=== PATIENT | female | born 1975 | race African-American/Black ===

== ENCOUNTER → 2016-04-20 | Outpatient (CLI) | payer OTHER ==
[~2016-04-20] MED LIST: FERR325T PO; FERRTAB2 PO; MACR100C2 PO; PREN1CAP33 PO; TERC20CR VAGINAL
== END ==
LOC: HPND 10:55
PROVIDERS: ATTEND Obstetrics & Gynecology Obstetrics
DX: O09.521 Supervision of elderly multigravida, first trimester (principal); O99.211 Obesity complicating pregnancy, first trimester; O99.011 Anemia complicating pregnancy, first trimester
CPT/HCPCS: 76801

== ENCOUNTER → 2016-06-20 | Outpatient (CLI) | payer MEDICAID ==
[~2016-06-20] MED LIST changes: -TERC20CR VAGINAL
== END ==
LOC: HPND 09:01
PROVIDERS: ATTEND Obstetrics & Gynecology
DX: O09.522 Supervision of elderly multigravida, second trimester (principal); O99.212 Obesity complicating pregnancy, second trimester; O99.012 Anemia complicating pregnancy, second trimester; Z3A.19 19 weeks gestation of pregnancy
CPT/HCPCS: 76811

== ENCOUNTER → 2016-07-18 | Outpatient (CLI) | payer MEDICAID | LOC: HPND 09:14 | PROVIDERS: ATTEND Obstetrics & Gynecology | DX: O99.212 Obesity complicating pregnancy, second trimester (principal); O09.522 Supervision of elderly multigravida, second trimester; O99.842 Bariatric surgery status complicating pregnancy, second trimester; E66.01 Morbid (severe) obesity due to excess calories; Z68.42 Body mass index [BMI] 45.0-49.9, adult; Z3A.23 23 weeks gestation of pregnancy | CPT/HCPCS: 76816; 76825; 76827; 93325 ==

== ENCOUNTER → 2016-08-14 | Outpatient (CLI) | payer MEDICAID ==
[~2016-08-14] MED LIST changes: -FERR325T PO; -MACR100C2 PO
== END ==
LOC: HPND 09:08
PROVIDERS: ATTEND Obstetrics & Gynecology
DX: O09.522 Supervision of elderly multigravida, second trimester (principal); O99.842 Bariatric surgery status complicating pregnancy, second trimester; O99.212 Obesity complicating pregnancy, second trimester; E66.01 Morbid (severe) obesity due to excess calories; Z68.42 Body mass index [BMI] 45.0-49.9, adult; Z3A.26 26 weeks gestation of pregnancy
CPT/HCPCS: 76816

== ENCOUNTER → 2016-09-04 | Outpatient (CLI) | payer MEDICAID | LOC: CDED 08:31 | DX: O24.419 Gestational diabetes mellitus in pregnancy, unspecified control (principal) | CPT/HCPCS: 97802 ==

== ENCOUNTER → 2016-09-18 | Outpatient (CLI) | payer MEDICAID | LOC: HPND 08:53 | PROVIDERS: ATTEND Obstetrics & Gynecology | DX: O09.523 Supervision of elderly multigravida, third trimester (principal); O99.843 Bariatric surgery status complicating pregnancy, third trimester; O99.213 Obesity complicating pregnancy, third trimester; E66.01 Morbid (severe) obesity due to excess calories; Z68.42 Body mass index [BMI] 45.0-49.9, adult; Z3A.31 31 weeks gestation of pregnancy | CPT/HCPCS: 76816 ==

== ENCOUNTER 2016-10-25 11:37 | Inpatient (IN) | payer MEDICAID ==
[2016-10-25] VITALS (38 sets, daily range): BP systolic 111–153; BP diastolic 64–92; PULSE 37–79; RESP 17–19; TEMP 97.7–98.7
[~2016-10-25] VITALS: Ht 170.2 cm; Wt 143.8 kg
--- NOTE | 2016-10-25 12:26 | PD ---
HPI Date Seen: Oct 25, 2016 Time Seen: 12:10 (Tan Metz MD R1) Travel History International Travel<30 Days: No Contact w/Intl Traveler<30Days: No Known Affected Area: No (Tan Metz MD R1) History of Present Illness HPI 41-year-old at 37/1 weeks gestation presenting with elevated pressure reading noted on clinic visit today. She denies chest pain, epigastric pain, headaches, vision changes. Of note, she had high blood pressure readings during her previous , but never carried a formal diagnosis of preeclampsia. ( Tan Metz MD R1) History Past Medical History Narrative Medical Obesity Gestational hypertension and prior Anemia (Tan Metz MD R1) Obstetric History Obstetric History , prior pregnancies all delivered vaginally without complication (2010, 2011) (Tan Metz MD R1) Past Surgical History Narrative Surgical Cholecystectomy Gastric bypass in 2008 (Tan Metz MD R1) Family History Family History: Negative (Tan Metz MD) Social History Alcohol Use: No Tobacco Use: No Substance Abuse: No (Tan Metz MD R1) Allergies-Medications (Allergen,Severity, Reaction): Coded Allergies: No Known Allergies (Verified , 10/25/16) Home Meds Active Scripts Multi-Vit/Iron-Folic [id number] C (Ferralet)90-1-0.012-120 mg Tab1 Tab PO DAILY #30 BOTTLE Ref 5 Prov:Katalina Lazo CNM [employer] 08/28/16 Vit W/ Fe Polysacch C (Vitafol Fe+ 90-1-200 & 50 mg)1 Cap Cap1 Tab PO DAILY #60 BOTTLE Ref 11 Prov:Lizeth Cummings [employer] 04/19/16 Review of Systems Except as stated in HPI: all other systems reviewed are Neg (Tan Metz MD R1) Physical Exam Vital Signs Date Time Temp Pulse Resp B/P Pulse Ox O2 Delivery O2 Flow Rate FiO2 10/25/16 12:10 74 131/84 10/25/16 12:05 19 10/25/16 12:03 78 153/78 Narrative GENERAL: Well-nourished, well-developed patient. SKIN: Warm and dry. HEAD: Normocephalic and atraumatic. EYES: No scleral icterus. No injection or drainage. ENT: No nasal drainage noted. Mucous membranes pink. Airway patent. CARDIOVASCULAR: Regular rate and rhythm without murmurs, gallops, or rubs. RESPIRATORY: Breath sounds equal bilaterally. No accessory muscle use. ABDOMEN/GI: Abdomen soft, non-tender, no rebound, no guarding GENITOURINARY: performed in office 10/25 Dilation: 0 Effacement: 50 Presentation: vertex Membranes: -2 Contractions: Irregular FHT's: Category: 1 Baseline: 125 Reactive: Y Variability: moderate Decels: N EXTREMITIES: No cyanosis or edema. NEUROLOGICAL: Awake and alert. Motor and sensory grossly within normal limits. Normal speech. (Tan Metz MD R1) 140/78, 138/84, 146/87, 146/86, 134/85, 133/78, 131/84 Narrative cervix 05/10/-3, ceph (Tammy Boss MD) Data Data Vital Signs Reviewed: Yes Orders Vital Signs (Adult) .ON ADMISSION (10/25/16 11:46) ^ Labor Status (10/25/16 11:46) Urinalysis - C+S If Indicated (10/25/16 11:46) ^ Non Stress Test (10/25/16 11:46) ^ Hydration (10/25/16 11:46) Cbc No Diff, Includes Plts (10/25/16 11:46) Comprehensive Metabolic Panel (10/25/16 11:46) Uric Acid (10/25/16 11:46) Protein Creat Ratio, Random Ur (10/25/16 11:46) (Tan Metz MD R1) Labs Laboratory Tests Test 10/25/16 10/25/16 12:15 12:25 Urine Color YELLOW Urine Turbidity HAZY Urine pH 6.5 Urine Specific [place] 1.023 Urine Protein 30 mg/dL Urine Glucose (UA) NEG mg/dL Urine Ketones NEG mg/dL Urine Occult Blood NEG Urine Nitrite NEG Urine Bilirubin NEG Urine Urobilinogen 4.0 MG/DL Urine Leukocyte Esterase LARGE Urine RBC 4 /hpf Urine WBC 63 /hpf Urine Squamous Epithelial 7 /hpf Cells Urine Bacteria MANY /hpf Urine Mucus MANY /lpf Microscopic Urinalysis Comment CULTURE INDICATED Urine Random Creatinine 258 MG/DL Urine Random Total Protein 91 MG/DL Urine Protein/Creatinine Ratio 0.35 White Blood Count 5.8 TH/MM3 Red Blood Count 3.70 MIL/MM3 Hemoglobin 8.2 GM/DL Hematocrit 25.7 % Mean Corpuscular Volume 69.5 FL Mean Corpuscular Hemoglobin 22.3 PG Mean Corpuscular Hemoglobin 32.0 % Concent Red Cell Distribution Width 19.4 % Platelet Count 179 TH/MM3 Mean Platelet Volume 8.9 FL Sodium Level 141 MEQ/L Potassium Level 3.3 MEQ/L Chloride Level 108 MEQ/L Carbon Dioxide Level 24.2 MEQ/L Anion Gap 9 MEQ/L Blood Urea Nitrogen 8 MG/DL Creatinine 0.58 MG/DL Estimat Glomerular Filtration 138 ML/MIN Rate Random Glucose 66 MG/DL Uric Acid 4.9 MG/DL Calcium Level 8.2 MG/DL Total Bilirubin 0.3 MG/DL Aspartate Amino Transf 18 U/L (AST/SGOT) Alanine Aminotransferase 13 U/L (ALT/SGPT) Alkaline Phosphatase 89 U/L Total Protein 7.2 GM/DL Albumin 2.3 GM/DL (Tammy Boss MD) [facility] Medical Record Reviewed: Yes Narrative Course / MDM 41-year-old at 37/1 with past medical history of obesity presenting for elevated blood pressure #1 IUP Category 1 tracing, reassuring #2 elevated blood pressure 145/90 in office, 153/84 initially in OB ED, decreased to 131 systolic - Urinalysis, urine protein/creatinine, CBC, CMP, uric acid - Monitor blood pressure - Further management based on results of the above dw Dr. Boss (Tan Metz MD R1) Medical Record Reviewed: Yes Plan 41 y/o AAF with IUP at 37.1 wks with mildly elevated blood pressures, proteinuria c/w mild preeclampsia 1. mild preeclampsia--labs reviewed. admit for delivery. will give misoprostol for cervical ripening and then initiate pitocin. monitor blood pressures closely. will hold Magnesium at this time. 2. AMA, age 41 (abnormal jorge 1:68) 3. morbid obesity 4. history of gastric bypass 5. GBS+--penicillin ordered 6. UTI--will f/u culture and give additional medication if organism not covered by penicillin 7. large uterine fibroid (12 cm) 8. anemia--hgb 8.4 (Tammy Boss MD) Tan Metz MD R1 Oct 25, 2016 12:26 Tammy Boss MD Oct 25, 2016 13:51
[2016-10-25 12:44] LABS: HEMATOCRIT 25.7 % (35.0-46.0); MEAN CELL VOLUME 69.5 FL (80.0-100.0); MEAN CORPUSCULAR HEMOGLOBIN 22.3 PG (27.0-34.0); PLATELET COUNT 179 TH/MM3 (150-450); RED CELL DISTRIBUTION WIDTH 19.4 % (11.6-17.2); REVIEW FLAG FINAL; WHITE BLOOD COUNT 5.8 TH/MM3 (4.0-11.0)
[2016-10-25 12:51] LABS: BACTERIA, URINE MANY /hpf; BLOOD, URINE NEG (NEG); COMMENT (UR) CULTURE INDICATED; CULTURE IF INDICATED CULTURE INDICATED; GLUCOSE,URINE NEG (NEG); KETONE, URINE NEG (NEG); MUCUS URINE MANY /lpf (OCC); NITRITE,URINE NEG (NEG); PH, URINE 6.5 (5.0-8.5); SQUAMOUS EPITHELIAL CELL URINE 7 /hpf (0-5); URINE COLOR YELLOW (YELLW/STRAW)
[2016-10-25 13:04] LABS: ALT (GPT) 13 U/L (10-53); ANION GAP 9 MEQ/L (5-15); AST (GOT) 18 U/L (15-37); BICARBONATE 24.2 MEQ/L (21.0-32.0); BLOOD UREA NITROGEN 8 MG/DL (7-18); CHLORIDE 108 MEQ/L (98-107); GLOMERULAR FILTRATION RATE 138 ML/MIN (>89); POTASSIUM 3.3 MEQ/L (3.5-5.1); SODIUM (NA) 141 MEQ/L (136-145); URIC ACID 4.9 MG/DL (2.6-6.0)
[2016-10-25 13:06] LABS: ALKALINE PHOSPHATASE 89 U/L (45-117); TOTAL BILIRUBIN ADULT 0.3 MG/DL (0.2-1.0)
[2016-10-25] MEDS ORDERED: LACTATED RINGER'S 1000 ML INJ 1,000 ML IV PRN (13:27)
[2016-10-25] MEDS ORDERED: SODIUM CHLORID 0.9% 500 ML INJ 500 ML IV PRN (13:30)
[2016-10-25] MEDS ORDERED: OXYTOCIN 30 UNITS-500ML PREMIX 500 ML IV SCH (13:30)
[2016-10-25] MEDS ORDERED: MINERAL OIL 10 ML VIAL TOPICAL PRN (13:30)
[2016-10-25] MEDS ORDERED: ONDANSETRON HCL 4 MG/2 ML VIAL IV PRN (13:30)
[2016-10-25] MEDS ORDERED: CITRIC ACID-SODIUM CITRATE LIQ 30 ML UDC PO SCH (13:30)
[2016-10-25] MEDS ORDERED: SODIUM CHLORIDE 0.9% FLUSH 10 ML FLUSH IV FLUSH PRN (13:30)
[2016-10-25] MEDS ORDERED: LIDOCAINE HCL 1% 50 ML VIAL I-DERMAL PRN (13:30)
[2016-10-25] MEDS ORDERED: PENICILLIN G POTASSIUM INJ 5,000,000 UNITS in SODIUM CHLORIDE 0.9% INJ 100 ML IV ONE (13:30)
[2016-10-25] MEDS ORDERED: OXYTOCIN 30 UNITS-500ML PREMIX 500 ML IV ONE (13:30)
[2016-10-25] MEDS ORDERED: LIDOCAINE HCL 1% 50 ML VIAL INFIL PRN (13:30)
[2016-10-25] MEDS ORDERED: MISOPROSTOL 25 MCG SUPP VAGINAL ONE (13:30)
[2016-10-25] MEDS ORDERED: SODIUM CHLOR 0.9% 1000 ML INJ 1,000 ML IV PRN (13:47)
--- NOTE | 2016-10-25 14:10 | HHI.HP ---
History & Physical H&P HPI HPI Date Seen: Oct 25, 2016 Time Seen: 12:10 (Tan Metz MD R1) Travel History International Travel<30 Days: No Contact w/Intl Traveler<30Days: No Known Affected Area: No (Tan Metz MD R1) History of Present Illness HPI 41-year-old at 37/1 weeks gestation presenting with elevated pressure reading noted on clinic visit today. She denies chest pain, epigastric pain, headaches, vision changes. Of note, she had high blood pressure readings during her previous , but never carried a formal diagnosis of preeclampsia. ( Tan Metz MD R1) History (Limited) History Past Medical History Narrative Medical Obesity Gestational hypertension and prior Anemia (Tan Metz MD R1) Obstetric History Obstetric History , prior pregnancies all delivered vaginally without complication (2010, 2011) (Tan Metz MD R1) Past Surgical History Narrative Surgical Cholecystectomy Gastric bypass in 2008 (Tan Metz MD R1) Family History Family History: Negative (Tan Metz MD R1) Social History Alcohol Use: No Tobacco Use: No Substance Abuse: No (Tan Metz MD R1) Allergies-Medications Allergies-Medications (Allergen,Severity, Reaction): Coded Allergies: No Known Allergies (Verified , 10/25/16) Home Meds Active Scripts Multi-Vit/Iron-Folic [id number] C (Ferralet)90-1-0.012-120 mg Tab1 Tab PO DAILY #30 BOTTLE Ref 5 Prov:Katalina Lazo CNM [employer]MAN 08/28/16 Vit W/ Fe Polysacch C (Vitafol Fe+ 90-1-200 & 50 mg)1 Cap Cap1 Tab PO DAILY #60 BOTTLE Ref 11 Prov:Lizeth Cummings [employer]MAN 04/19/16 ROS Review of Systems Except as stated in HPI: all other systems reviewed are Neg (Tan Metz MD R1) Physical Exam Physical Exam Vital Signs Date Time Temp Pulse Resp B/P Pulse Ox O2 Delivery O2 Flow Rate FiO2 10/25/16 12:10 74 131/84 10/25/16 12:05 19 10/25/16 12:03 78 153/78 Narrative GENERAL: Well-nourished, well-developed patient. SKIN: Warm and dry. HEAD: Normocephalic and atraumatic. EYES: No scleral icterus. No injection or drainage. ENT: No nasal drainage noted. Mucous membranes pink. Airway patent. CARDIOVASCULAR: Regular rate and rhythm without murmurs, gallops, or rubs. RESPIRATORY: Breath sounds equal bilaterally. No accessory muscle use. ABDOMEN/GI: Abdomen soft, non-tender, no rebound, no guarding GENITOURINARY: performed in office 10/25 Dilation: 0 Effacement: 50 Presentation: vertex Membranes: -2 Contractions: Irregular FHT's: Category: 1 Baseline: 125 Reactive: Y Variability: moderate Decels: N EXTREMITIES: No cyanosis or edema. NEUROLOGICAL: Awake and alert. Motor and sensory grossly within normal limits. Normal speech. (Tan Metz MD R1) 140/78, 138/84, 146/87, 146/86, 134/85, 133/78, 131/84 Narrative cervix 05/10/-3, ceph (Tammy Boss MD) Data Data Data Vital Signs Reviewed: Yes Orders Vital Signs (Adult) .ON ADMISSION (10/25/16 11:46) ^ Labor Status (10/25/16 11:46) Urinalysis - C+S If Indicated (10/25/16 11:46) ^ Non Stress Test (10/25/16 11:46) ^ Hydration (10/25/16 11:46) Cbc No Diff, Includes Plts (10/25/16 11:46) Comprehensive Metabolic Panel (10/25/16 11:46) Uric Acid (10/25/16 11:46) Protein Creat Ratio, Random Ur (10/25/16 11:46) (Tan Metz MD R1) Labs Laboratory Tests Test 10/25/16 10/25/16 12:15 12:25 Urine Color YELLOW Urine Turbidity HAZY Urine pH 6.5 Urine Specific [place] 1.023 Urine Protein 30 mg/dL Urine Glucose (UA) NEG mg/dL Urine Ketones NEG mg/dL Urine Occult Blood NEG Urine Nitrite NEG Urine Bilirubin NEG Urine Urobilinogen 4.0 MG/DL Urine Leukocyte Esterase LARGE Urine RBC 4 /hpf Urine WBC 63 /hpf Urine Squamous Epithelial 7 /hpf Cells Urine Bacteria MANY /hpf Urine Mucus MANY /lpf Microscopic Urinalysis Comment CULTURE INDICATED Urine Random Creatinine 258 MG/DL Urine Random Total Protein 91 MG/DL Urine Protein/Creatinine Ratio 0.35 White Blood Count 5.8 TH/MM3 Red Blood Count 3.70 MIL/MM3 Hemoglobin 8.2 GM/DL Hematocrit 25.7 % Mean Corpuscular Volume 69.5 FL Mean Corpuscular Hemoglobin 22.3 PG Mean Corpuscular Hemoglobin 32.0 % Concent Red Cell Distribution Width 19.4 % Platelet Count 179 TH/MM3 Mean Platelet Volume 8.9 FL Sodium Level 141 MEQ/L Potassium Level 3.3 MEQ/L Chloride Level 108 MEQ/L Carbon Dioxide Level 24.2 MEQ/L Anion Gap 9 MEQ/L Blood Urea Nitrogen 8 MG/DL Creatinine 0.58 MG/DL Estimat Glomerular Filtration 138 ML/MIN Rate Random Glucose 66 MG/DL Uric Acid 4.9 MG/DL Calcium Level 8.2 MG/DL Total Bilirubin 0.3 MG/DL Aspartate Amino Transf 18 U/L (AST/SGOT) Alanine Aminotransferase 13 U/L (ALT/SGPT) Alkaline Phosphatase 89 U/L Total Protein 7.2 GM/DL Albumin 2.3 GM/DL (Tammy Boss MD) Assessment and Plan 41 y/o AAF with IUP at 37.1 wks with mildly elevated blood pressures, proteinuria c/w mild preeclampsia 1. mild preeclampsia--labs reviewed. admit for delivery. will give misoprostol for cervical ripening and then initiate pitocin. monitor blood pressures closely. will hold Magnesium at this time. 2. AMA, age 41 (abnormal jorge 1:68) 3. morbid obesity 4. history of gastric bypass 5. GBS+--penicillin ordered 6. UTI--will f/u culture and give additional medication if organism not covered by penicillin 7. large uterine fibroid (12 cm) 8. anemia--hgb 8.4 (Tammy Boss MD) (Tan Metz MD R1) H&P The exam, history, and the medical decision-making described in the above note were completed with the assistance of the resident provider. I reviewed and agree with the findings presented. I attest that I had a [id number] encounter with the patient on the same day, and personally performed and documented my assessment and findings in the medical record. (Tammy Boss MD) Tan Metz MD R1 Oct 25, 2016 14:10 Tammy Boss MD Oct 25, 2016 15:06
[2016-10-25] MEDS: LACTATED RINGER'S 1000 ML INJ 1,000 ML IV SCH ×2 (15:47→23:26)
[2016-10-25] MEDS ORDERED: MISOPROSTOL 25 MCG SUPP VAGINAL PRN (17:30)
[2016-10-25] MEDS: PENICILLIN G POTASSIUM INJ 2,500,000 UNITS in SODIUM CHLORIDE 0.9% INJ 100 ML IV SCH ×2 (17:30→20:00)
[2016-10-25] MEDS: SODIUM CHLORIDE 0.9% FLUSH 10 ML FLUSH IV FLUSH SCH (21:00)
[2016-10-26] VITALS (43 sets, daily range): BP systolic 113–167; BP diastolic 55–98; PULSE 56–87; RESP 14–18; TEMP 98–98.9
[2016-10-26] MEDS: PENICILLIN G POTASSIUM INJ 2,500,000 UNITS in SODIUM CHLORIDE 0.9% INJ 100 ML IV SCH ×8 (00:06→20:00)
[2016-10-26] MEDS: LACTATED RINGER'S 1000 ML INJ 1,000 ML IV SCH ×3 (07:56→21:27)
[2016-10-26] MEDS: SODIUM CHLORIDE 0.9% FLUSH 10 ML FLUSH IV FLUSH SCH ×2 (07:56→21:00)
--- NOTE | 2016-10-26 08:39 | PD.LABORPN ---
Subjective Subjective Sitting up in bed, comfortable, no distress. He has occasional cramping but not very strong contractions. Objective Vital Signs Vital Signs Date Time Temp Pulse Resp B/P Pulse Ox O2 Delivery O2 Flow Rate FiO2 10/26/16 08:01 65 133/77 10/26/16 07:15 98.3 16 10/26/16 07:01 59 127/73 10/26/16 06:31 66 141/81 10/26/16 06:15 18 10/26/16 06:15 98.9 10/26/16 06:02 64 141/79 10/26/16 05:51 150/87 10/26/16 05:45 67 150/87 10/26/16 05:45 18 10/26/16 04:45 18 10/26/16 04:32 59 160/73 10/26/16 04:15 98.0 10/26/16 04:12 18 10/26/16 04:02 59 10/26/16 04:02 163/97 10/26/16 03:31 62 167/93 10/26/16 03:02 151/86 10/26/16 03:02 65 10/26/16 02:45 98.2 18 10/26/16 02:31 146/88 10/26/16 02:31 56 10/26/16 02:11 18 10/26/16 02:01 65 151/98 10/26/16 01:32 56 153/89 10/26/16 01:11 18 10/26/16 01:10 59 146/83 Objective Pelvic Exam: Cervix: anterior Dilatation: 1 Effacement: thick Station: -2 Presentation: vertex Membranes: intact Uterine Contractions: regular every 1-4 mins FHT's: Category: 1 Baseline: 120 Reactive: Y Variability: moderate Decels: N Assessment/Plan Problem List: (1) Mild preeclampsia (2) Advanced maternal age in multigravida Assessment and Plan 31-year-old female with mild preeclampsia admitted for induction of labor #1 IUP Category 1 tracing, reassuring - Continuous monitoring #2 advance maternal age #3 mild preeclampsia Blood pressures ranging in the 130s to 140s systolic, not having preeclamptic symptoms - Vital signs per protocol - Has not made progress after Cytotec and Pitocin - Hold Pitocin, allow patient to eat, then place Cervidil insert #4 GBS positive Receiving penicillin every 4 hours Tan Metz MD R1 Oct 26, 2016 08:39
[2016-10-26] MEDS ORDERED: DINOPROSTONE 10 MG VAG INSERT VAGINAL ONE (09:15)
[2016-10-26] MEDS ORDERED: OXYTOCIN 30 UNITS-500ML PREMIX 500 ML IV SCH (22:15)
[2016-10-27] VITALS (63 sets, daily range): BP systolic 111–147; BP diastolic 40–110; PULSE 55–189; RESP 14–20; TEMP 97.7–98.7; O2SAT 98–100
[2016-10-27] MEDS: PENICILLIN G POTASSIUM INJ 2,500,000 UNITS in SODIUM CHLORIDE 0.9% INJ 100 ML IV SCH ×3 (01:23→09:14)
[2016-10-27] MEDS: LACTATED RINGER'S 1000 ML INJ 1,000 ML IV SCH (07:09)
--- NOTE | 2016-10-27 07:59 | PD.LABORPN ---
Subjective Subjective Day 2 induction AROM- clear , cx 1/50/-3 /vtx IUPC /FSE inserted , FHR reactive cont pit induction anticipate vaginal delivery Objective Vital Signs Vital Signs Date Time Temp Pulse Resp B/P Pulse Ox O2 Delivery O2 Flow Rate FiO2 10/27/16 07:33 14 10/27/16 07:32 65 136/69 10/27/16 07:06 63 139/73 10/27/16 07:00 16 10/27/16 06:30 55 145/75 10/27/16 06:29 18 10/27/16 06:00 66 140/74 10/27/16 05:59 18 10/27/16 05:15 18 10/27/16 04:59 18 10/27/16 04:30 18 10/27/16 04:15 98.0 10/27/16 04:05 61 131/75 10/27/16 04:00 18 10/27/16 03:30 18 10/27/16 03:00 18 10/27/16 02:30 18 10/27/16 01:45 18 10/27/16 01:15 18 10/27/16 00:45 10/27/16 00:15 18 10/27/16 00:15 18 Objective Pelvic Exam: Cervix: [-] Dilatation: [1-] Effacement: [-50] Station: [-3] Presentation: [vtx-] Membranes: [ ruptured] Uterine Contractions: [-] FHT's: Category: [1-] Baseline: [133-] Reactive: [yes-] Variability: [-] Decels: [-] Assessment/Plan Problem List: (1) Mild preeclampsia (2) Advanced maternal age in multigravida Ángel Shipley II, MD Oct 27, 2016 07:59
[2016-10-27] MEDS: SODIUM CHLORIDE 0.9% FLUSH 10 ML FLUSH IV FLUSH SCH (09:00)
[2016-10-27] MEDS ORDERED: fentaNYL 2MCG-BUPIV 0.125% INJ 100 ML ONE (10:21)
--- NOTE | 2016-10-27 12:24 | PD.OB.DELI ---
Delivery Date: Oct 27, 2016 Anesthesia: Epidural Episiotomy: None Vaginal Delivery: Normal Presentation: Occiput anterior Nuchal Cord: x1 Delayed cord clamping (45 sec): Yes Infant: Female One Minute : 9 Five Minute : 9 Weight: 2690 g Placenta: Spontaneous delivery Laceration: Vaginal laceration (2-o-clock and 7 o-clock; small, non-bleeding, no need for suture) Additional Information Delivered by Dr. Metz Supervised by Dr. Hummel (Tan Metz MD R1) Additional Information Attending note: I was present for the entire delivery. (Chel Hummel MD) Tan Metz MD R1 Oct 27, 2016 12:23 Chel Hummel MD Oct 27, 2016 15:00
[2016-10-27] MEDS ORDERED: SODIUM CHLORIDE 0.9% FLUSH 10 ML FLUSH IV FLUSH PRN (13:15)
[2016-10-27] MEDS ORDERED: WITCH HAZEL 50%/GLYCERIN 12.5% 40 PAD JAR TOPICAL PRN (13:15)
[2016-10-27] MEDS ORDERED: ACETAMINOPHEN 325 MG TAB PO PRN (13:15)
[2016-10-27] MEDS ORDERED: ONDANSETRON ODT 4 MG TAB PO PRN (13:15)
[2016-10-27] MEDS ORDERED: ZOLPIDEM TARTRATE 5 MG TAB PO PRN (13:15)
[2016-10-27] MEDS ORDERED: DOCUSATE SODIUM 50 MG/SENNA 8.6 MG TAB PO PRN (13:15)
[2016-10-27] MEDS ORDERED: ALUMINUM/MAGNESIUM/SIMETH 30 ML CUP PO PRN (13:15)
[2016-10-27] MEDS ORDERED: BENZOCAINE 20% TOPICAL SPRAY 60 ML CAN TOPICAL PRN (13:15)
[2016-10-27] MEDS ORDERED: IBUPROFEN 600 MG TAB PO PRN (13:15)
[2016-10-27] MEDS ORDERED: fentaNYL 2MCG-BUPIV 0.125% 100 ML EPIDURAL SCH (15:45)
[2016-10-27] MEDS ORDERED: NO SYSTEM NARCOTICS PRN (15:45)
[2016-10-27] MEDS ORDERED: DO NOT ADMINISTER ANTICOAGULANTS PRN (15:45)
[2016-10-27] MEDS ORDERED: ePHEDrine/NS 25 MG/5 ML SYR IV PRN (15:45)
[2016-10-27] MEDS ORDERED: DIPHTH/TETANUS/ACEL PERTUSSIS (BOOSTER) 0.5 ML VIAL/PFS IM ONE (16:00)
[2016-10-27] MEDS ORDERED: MEASLES, MUMPS, RUBELLA VACCINE 0.5 ML VIAL SQ ONE (16:00)
[2016-10-27] MEDS ORDERED: SODIUM CHLORIDE 0.9% FLUSH 10 ML FLUSH IV FLUSH SCH (21:00)
[2016-10-27] MEDS: SULFAMETHOXAZOLE-TRIMETHOPRIM DS 800-160 MG TAB PO SCH (22:28)
[2016-10-28 07:40] VITALS: BP 105/66; PULSE 60; RESP 20; TEMP 98
--- NOTE | 2016-10-28 08:54 | HHI.OB ---
Subjective Remarks 41 year old female s/p at 37 wks gestation, PPD 1. AFVSS. Patient reports she is feeling well. Bleeding is decreasing and pain is well- controlled. She is breast feeding and bonding well with baby. Ambulating without difficulties. She is tolerating a diet without nausea or vomiting. She has not had a bowel movement. She has passed gas. Denies chest pain, dysuria, shortness of breath, or calf pain. (Tan Metz MD R1) Objective Vitals/I&O Vital Signs Date Time Temp Pulse Resp B/P Pulse Ox O2 Delivery O2 Flow Rate FiO2 10/28/16 07:40 60 20 105/66 10/28/16 07:40 98.0 10/27/16 19:45 98.6 63 20 124/74 10/27/16 16:00 16 10/27/16 14:20 98.7 65 16 126/74 10/27/16 13:45 15 10/27/16 13:45 138/80 10/27/16 13:39 64 10/27/16 13:30 79 127/78 10/27/16 13:30 15 10/27/16 13:15 18 10/27/16 13:13 146/81 10/27/16 13:03 70 10/27/16 13:00 17 10/27/16 13:00 70 139/86 10/27/16 12:45 17 10/27/16 12:31 71 118/71 10/27/16 12:30 18 10/27/16 12:30 97.7 10/27/16 12:23 72 124/103 10/27/16 12:19 189 10/27/16 12:02 87 10/27/16 11:35 70 10/27/16 11:31 177 140/110 10/27/16 11:30 64 10/27/16 11:25 66 99 10/27/16 11:20 69 99 10/27/16 11:16 72 116/80 10/27/16 11:15 64 99 10/27/16 11:11 61 132/86 10/27/16 11:10 72 10/27/16 11:10 98 10/27/16 11:06 71 133/83 10/27/16 11:05 98 10/27/16 11:05 68 10/27/16 11:01 67 138/81 10/27/16 10:56 78 120/64 10/27/16 10:55 78 10/27/16 10:55 100 10/27/16 10:51 71 120/62 10/27/16 10:50 99 10/27/16 10:50 78 10/27/16 10:46 82 118/68 10/27/16 10:45 73 10/27/16 10:45 100 10/27/16 10:41 70 111/53 10/27/16 10:40 72 10/27/16 10:40 100 10/27/16 10:37 66 115/40 10/27/16 10:35 100 10/27/16 10:35 68 10/27/16 10:07 98.1 15 10/27/16 10:01 68 147/80 10/27/16 09:10 72 136/75 Objective Remarks GENERAL: Well-nourished, well-developed patient. CARDIOVASCULAR: Regular rate and rhythm without murmurs, gallops, or rubs. RESPIRATORY: Breath sounds equal bilaterally. No accessory muscle use. ABDOMEN/GI: Abdomen soft, non-tender. Fundus: Firm, non-tender below umbilicus. GENITOURINARY: Light to moderate bleeding. EXTREMITIES: No cyanosis or edema, non-tender, without signs of DVT. Medications and IVs Current Medications Medications (Trade) Dose Ordered Sig/Joseph Route Start Time Stop Time Status Last Admin (NS Flush) 2 ml BID IV FLUSH 10/27/16 21:00 (NS Flush) 2 ml UNSCH PRN IV FLUSH 10/27/16 13:15 (Tylenol) 650 mg Q4H PRN PO 10/27/16 13:15 (Motrin) 600 mg Q6H PRN PO 10/27/16 13:15 (Americaine 20% Top Spr) 1 spray Q4H PRN TOPICAL 10/27/16 13:15 (Tucks Pads) 1 applic QID PRN TOPICAL 10/27/16 13:15 (Margarita-Colace) 2 tab Q12H PRN PO 10/27/16 13:15 (Ambien) 5 mg HS PRN PO 10/27/16 13:15 (Mag-Al Plus Susp Liq) 15 ml Q8H PRN PO 10/27/16 13:15 (Zofran Odt) 4 mg Q6H PRN PO 10/27/16 13:15 (Bactrim Ds 800-160 Mg) 1 tab Q12HR PO 10/27/16 21:00 10/27/16 22:28 Miscellaneous Information No systemic narcotics to be given except... UNSCH PRN .XX 10/27/16 15:45 10/28/16 15:44 Miscellaneous Information DO NOT ADMINISTER ANY ANTICOAGUL... UNSCH PRN .XX 10/27/16 15:45 10/28/16 15:44 (fentaNYL 2MCG-BUPIV 0.125% INJ) 100 ml @ 0 mls/hr TITRATE EPIDURAL 10/27/16 15:45 10/27/16 16:00 (ePHEDrine/NS 25 MG/5 ML SYR) 10 mg UNSCH PRN IV 10/27/16 15:45 10/28/16 15:44 (Pneumovax-23 Inj) 25 mcg ONCE ONCE IM 10/28/16 10:00 10/28/16 10:01 (Tan Metz MD R1) Assessment/Plan Problem List: (1) Mild preeclampsia (2) Advanced maternal age in multigravida (3) UTI (urinary tract infection) during Assessment and Plan 41 yo female s/p , PPD 1 - AFVSS - Mild pre-eclampsia; BP < 140/90 - UTI noted on admission, UCx growing E. 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 Continue PP care and observation Patient seen and examined, d/w Dr. Metz/Dr. Jackson (Marii Roberson MD) Tan Metz MD R1 Oct 28, 2016 08:54 Marii Roberson MD Oct 28, 2016 09:27
[2016-10-28] MEDS: SULFAMETHOXAZOLE-TRIMETHOPRIM DS 800-160 MG TAB PO SCH ×2 (09:47→20:48)
[2016-10-28] MEDS ORDERED: SULF1TAB23 PO (09:53)
[2016-10-28] MEDS ORDERED: IBUP-232 PO (09:53)
[2016-10-28] MEDS ORDERED: PNEUMOCOCCAL POLYVALENT INJ 25 MCG/0.5 ML SYR IM ONE (10:00)
[2016-10-28 20:55] VITALS: BP 125/78; PULSE 96; RESP 20; TEMP 99.2
[2016-10-29 07:45] VITALS: BP 106/66; PULSE 67; RESP 20; TEMP 97.9
--- NOTE | 2016-10-29 07:52 | HHI.OB ---
Subjective Post Day: 2 Remarks 41 year old female s/p at 37 wks gestation, PPD 2. AFVSS. Patient reports she is feeling well. Bleeding is decreasing and pain is well- controlled. She is breast feeding and bonding well with baby. Ambulating without difficulties. She is tolerating a diet without nausea or vomiting. She has had a bowel movement. She has passed gas. Denies chest pain, dysuria, shortness of breath, or calf pain. Objective Vitals/I&O Vital Signs Date Time Temp Pulse Resp B/P Pulse Ox O2 Delivery O2 Flow Rate FiO2 10/29/16 07:45 97.9 67 20 106/66 10/28/16 20:55 99.2 96 20 125/78 Objective Remarks GENERAL: Well-nourished, well-developed patient. CARDIOVASCULAR: Regular rate and rhythm without murmurs, gallops, or rubs. RESPIRATORY: Breath sounds equal bilaterally. No accessory muscle use. ABDOMEN/GI: Abdomen soft, non-tender. Fundus: Firm, non-tender below umbilicus. GENITOURINARY: Light to moderate bleeding. EXTREMITIES: No cyanosis or edema, non-tender, without signs of DVT. Medications and IVs Current Medications Medications (Trade) Dose Ordered Sig/Joseph Route Start Time Stop Time Status Last Admin (NS Flush) 2 ml BID IV FLUSH 10/27/16 21:00 (NS Flush) 2 ml UNSCH PRN IV FLUSH 10/27/16 13:15 (Tylenol) 650 mg Q4H PRN PO 10/27/16 13:15 (Motrin) 600 mg Q6H PRN PO 10/27/16 13:15 (Americaine 20% Top Spr) 1 spray Q4H PRN TOPICAL 10/27/16 13:15 (Tucks Pads) 1 applic QID PRN TOPICAL 10/27/16 13:15 (Margarita-Colace) 2 tab Q12H PRN PO 10/27/16 13:15 (Ambien) 5 mg HS PRN PO 10/27/16 13:15 (Mag-Al Plus Susp Liq) 15 ml Q8H PRN PO 10/27/16 13:15 (Zofran Odt) 4 mg Q6H PRN PO 10/27/16 13:15 Trimethoprim/ Sulfamethoxazole 1 tab 1 tab Q12HR PO 10/27/16 21:00 10/28/16 20:48 (fentaNYL 2MCG-BUPIV 0.125% INJ) 100 ml @ 0 mls/hr TITRATE EPIDURAL 10/27/16 15:45 10/27/16 16:00 Assessment/Plan Problem List: (1) Mild preeclampsia (2) Advanced maternal age in multigravida (3) UTI (urinary tract infection) during Assessment and Plan 41 yo female s/p , PPD 2 - AFVSS - Mild pre-eclampsia; BP < 140/90 - UTI noted on admission, UCx growing E. 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
--- NOTE | 2016-10-29 09:42 | HHI.DCPOC ---
Discharge Care Plan Diagnosis: (1) Normal vaginal delivery Report Symptoms to Your Doctor -Temperature above 100.5 degrees -Redness, of incision or excessive or foul smelling drainage -Unusual pain or calf pain -Increased vaginal bleeding -Painful or difficulty urinating -Feelings of extreme sadness or anxiety after 2 weeks Goals to Promote Your Health * To prevent worsening of your condition and complications * To maintain your health at the optimal level Directions to Meet Your Goals Take your medications as prescribed Follow your dietary instruction Follow activity as directed Ensure plenty of rest for recovery Drink fluids for hydration Keep your appointments as scheduled Take your immunizations and boosters as scheduled If your symptoms worsen call your PCP, if no PCP go to Urgent Care Center or Emergency Room Smoking is Dangerous to Your Health. Avoid second hand smoke Call the 24-hour crisis hotline for domestic abuse at Sadia Camargo MD R1 Oct 29, 2016 09:42
== END 2016-10-29 13:45 | disposition home or self-care (01) | DRG 774 ==
LOC: HOBED 11:37 → H2EB 13:44 → H1EA 10-27 14:13
PROVIDERS: ADMIT Obstetrics & Gynecology; ATTEND Obstetrics & Gynecology
PROC: 3E0P7GC Introduction of Other Therapeutic Substance into Female Reproductive, Via Natural or Artificial Opening (ICD-10-PCS; 2016-10-25)
PROC: 10E0XZZ Delivery of Products of Conception, External Approach (ICD-10-PCS; principal; 2016-10-27)
PROC: 10907ZC Drainage of Amniotic Fluid, Therapeutic from Products of Conception, Via Natural or Artificial Opening (ICD-10-PCS; 2016-10-27)
PROC: 10H07YZ Insertion of Other Device into Products of Conception, Via Natural or Artificial Opening (ICD-10-PCS; 2016-10-27)
PROC: 3E0S3CZ (ICD-10-PCS; 2016-10-27)
PROC: 00HU33Z Insertion of Infusion Device into Spinal Canal, Percutaneous Approach (ICD-10-PCS; 2016-10-27)
DX: O14.04 Mild to moderate pre-eclampsia, complicating childbirth (principal); O75.3 Other infection during labor; N39.0 Urinary tract infection, site not specified; Z68.42 Body mass index [BMI] 45.0-49.9, adult; B96.20 Unspecified Escherichia coli [E. coli] as the cause of diseases classified elsewhere; O99.214 Obesity complicating childbirth; E66.01 Morbid (severe) obesity due to excess calories; O99.844 Bariatric surgery status complicating childbirth; O99.824 Streptococcus B carrier state complicating childbirth; O34.13 Maternal care for benign tumor of corpus uteri, third trimester; O99.02 Anemia complicating childbirth; D64.9 Anemia, unspecified; O70.0 First degree perineal laceration during delivery; Z3A.37 37 weeks gestation of pregnancy; Z37.0 Single live birth
CPT/HCPCS: 36415; 59025; 76937; 80053; 81001; 82570; 84156; 84550; 85027; 87077; 87086; 87186; 90715; J2540; J2590; J7120